=== PATIENT | male | born 1955 | race Caucasian/White ===

== ENCOUNTER 2018-06-06 04:53 | Emergency (ER) | payer OTHER ==
[2018-06-06] MEDS ORDERED: LIDOCAINE 2% JELLY 20 ML (UROJECT) ONE (05:01)
--- NOTE | 2018-06-06 05:28 | EDPHY ---
H & P Time Seen by Provider: 06/06/18 05:05 HPI/ROS: CHIEF COMPLAINT: Urinary retention HISTORY OF PRESENT ILLNESS: Patient states that he has been unable to pass any urine since about 9 o'clock last night. He said he had this problem once before in the 90s. He denies any recent medication changes or [id number] medications. He has had no recent procedures. He is followed by Dr. Thakkar for for some"prostate"troubles. He has not been to the urologist for several months. He states that his urinary output was slightly less yesterday but denies problems prior to that. Denies any abdominal pain, nausea vomiting or diarrhea. No chest pain or shortness of breath. No fevers. Constitutional: No fever, no chills. REVIEW OF SYSTEMS: Eyes: No discharge. ENT: No sore throat. Cardiovascular: No chest pain, no palpitations. Respiratory: No cough, no shortness of breath. Gastrointestinal: No abdominal pain, no vomiting. Genitourinary: Per HPI Musculoskeletal: No back pain. Skin: No rashes. Neurological: No headache. General Appearance: Alert, no distress. Eyes: Pupils equal and round no pallor or injection. ENT, Mouth: Mucous membranes moist. Respiratory: There are no retractions, lungs are clear to auscultation. Cardiovascular: Regular rate and rhythm. Gastrointestinal: Abdomen is soft and nontender, no masses, bowel sounds normal. Neurological: Awake alert no focal motor deficits. At baseline. Skin: Warm and dry, no rashes. Musculoskeletal: Neck is supple nontender full range of motion. Right leg congenitally smaller than left. Normal movement and sensation. Psychiatric: Patient is oriented X 3, there is no agitation. Medical/surgical history: Knee surgery, hypertension, seizures. Cerebral palsy. Social history: Nonsmoker, denies drugs Smoking Status: Never smoked Constitutional: Initial Vital Signs Temperature (C) 36.8 C 06/06/18 05:00 Heart Rate 81 06/06/18 05:00 Respiratory Rate 18 06/06/18 05:00 Blood Pressure 136/94 H 06/06/18 05:00 O2 Sat (%) 94 06/06/18 05:00 O2 Delivery Mode Room Air Allergies/Adverse Reactions: No Known Allergies Allergy (Unverified 06/06/18 04:59) Home Medications: Medication Instructions Recorded Atorvastatin Calcium 10 mg PO 06/06/18 Lisinopril 20 mg PO 06/06/18 Tamsulosin HCl [Flomax] 0.4 mg PO DAILY #10 cap 06/06/18 carBAMazepine [Carbamazepine] 0 mg PO Q8 06/06/18 Medical Decision Making ED Course/Re-evaluation: Benoit placed by RN and, 1200 mls of clear yellow urine return. Differential Diagnosis: Differential diagnosis includes but is not limited to urinary retention, urinary tract infection, pyelonephritis. Benoit catheter placed upon arrival of patient with well over a Liter of urine returned. Patient with history of prostate problems and will need Benoit catheter for at least 48 hours. He does have a urologist, Dr. Echevarria, and will be instructed to follow up on Thursday. No evidence of infection, no known medication changes as etiology of urinary retention. Started on tamsulosin 0.4 mg a day. Reviewed follow-up and return precautions. - Data Points Point of Care Test Results: Urine Dip Collection Date 06/06/18 Collection Time 05:14 Specific Mchenry (1.002-1.030) 1.010 PH (5.0-7.5) 6.0 Leukocytes (Negative) Negative Nitrites (Negative) Negative Protein (Negative) Negative Glucose (Negative) Negative Ketones (Negative) Negative Urobilnogen (0.2-1.0 EU) 0.2 Bilirubin (Negative) Negative Blood (Negative) 2+ Departure - Departure Clinical Impression: Acute retention of urine Condition: Good Instructions: Tamsulosin (By mouth), Urinary Retention in Men (ED), Benoit Catheter Placement and Care (ED) Additional Instructions: Call your urologist, Dr. Echevarria, on Thursday to schedule an appointment to be seen on Thursday. Return to the emergency department if he develops severe abdominal pain, fever, inability to pass urine or other concerns. Referrals: Patient,NotPresent [Primary Care Provider] - As per Instructions Emile Echevarria MD [Medical Doctor] - As per Instructions Prescriptions: Tamsulosin HCl [Flomax] 0.4 mg PO DAILY #10 cap
[2018-06-06] MEDS ORDERED: TAMSULOSIN HCL 0.4 MG CAP PO ONE (05:32)
[2018-06-06 06:13] VITALS: BP 128/86
== END 2018-06-06 05:54 | disposition home or self-care (01) ==
LOC: CED 04:53
PROC: 0T9B70Z Drainage of Bladder with Drainage Device, Via Natural or Artificial Opening (ICD-10-PCS; principal; 2018-06-06)
DX: R33.9 Retention of urine, unspecified (principal); N42.9 Disorder of prostate, unspecified; I10 Essential (primary) hypertension